=== PATIENT | female | born 1945 | race American Indian/Alaskan Native ===

== ENCOUNTER 2017-03-24 10:46 | Emergency (ER) | payer MEDICARE ==
--- NOTE | 2017-03-24 11:32 | XRay Report ---
AP CHEST : 03/24/17 10:46:00 CLINICAL: Hypertension. COMPARISON:05/19/16 FINDINGS: The left hand overlies the heart. The heart is borderline large. Normal pulmonary vessels. Mild right basal subsegmental atelectasis. The lungs are otherwise clear. A right UNDERWRITING ASSISTANT shunt tube. The bones and soft tissues are unremarkable. IMPRESSION: No acute cardiopulmonary process.
[2017-03-24 11:39] LABS: Basophils % (Auto) 0.3 % (0.0-1.8); Hematocrit 36.3 % (30.3-42.9); Hemoglobin 11.4 gm/dl (10.1-14.3); Mean Corpuscular HGB Conc 32 % (30-34); Mean Corpuscular Hemoglobin 27 pg (28-32); Mean Corpuscular Volume 86 fl (79-97); Platelet Count 272 K/mm3 (140-440); Red Blood Count 4.22 M/mm3 (3.65-5.03); Red Cell Distribution Width 14.8 % (13.2-15.2); White Blood Count 14.7 K/mm3 (4.5-11.0)
[2017-03-24 11:54] LABS: INR 1.04 (0.87-1.13); Partial Thromboplastin Time 28.2 Sec. (24.2-36.6)
[2017-03-24 11:55] LABS: Anion Gap 16 mmol/L; BUN/Creatinine Ratio 31.42; Blood Urea Nitrogen 22 mg/dL (7-17); Calcium 9.3 mg/dL (8.4-10.2); Carbon Dioxide 25 mmol/L (22-30); Chloride 102.5 mmol/L (98-107); Glucose 126 mg/dL (65-100); Potassium 4.2 mmol/L (3.6-5.0); Sodium 139 mmol/L (137-145)
--- NOTE | 2017-03-24 12:01 | Emergency Department Report ---
ED General Adult HPI - General Chief complaint: Medical Clearance Stated complaint: TRACH TUBE REMOVAL Time Seen by Provider: 03/24/17 11:00 Source: EMS Mode of arrival: Stretcher Limitations: Physical Limitation, Other - History of Present Illness Initial comments: The patient was transported to this facility after trach dislodgment. She is a total care patient in a detention. She has a chronic trach. The size was 6 uncuffed. Paramedics tell me that the detention staff attempted to replace a #6 uncuffed and they were unsuccessful. They attempted to replace the trach with a number for uncuffed and that was also unsuccessful. The patient arrived with a washcloth that did have some blood on it. However, the patient's work of breathing is normal and there is no bleeding at the stoma at this time. There is no evidence of stridor. -: Sudden Severity scale (0 -10): 0 Treatments Prior to Arrival: other - Related Data Home Medications Medication Instructions Recorded Confirmed Last Taken Albuterol *Only Ed* [Proventil 2.5 mg IH Q6H PRN 05/15/16 05/15/16 Unknown 0.5% NEBS] Aspirin [Aspirin BABY CHEW TAB] 81 mg FEEDTUBE QDAY 05/15/16 05/15/16 Unknown AtorvaSTATin [Lipitor] 40 mg FEEDTUBE QDAY 05/15/16 05/15/16 Unknown Docusate Sodium [Move It Along] 100 mg FEEDTUBE BID 05/15/16 05/15/16 Unknown Lacosamide [Vimpat] 200 mg FEEDTUBE BID 05/15/16 05/15/16 Unknown Levothyroxine [Synthroid] 150 mcg FEEDTUBE QAM 05/15/16 05/15/16 Unknown Metoprolol [Lopressor TAB] 25 mg FEEDTUBE TID 05/15/16 05/15/16 Unknown Pantoprazole Sodium 40 mg FEEDTUBE QDAY 05/15/16 05/15/16 Unknown Sennosides [Senna] 8.6 mg FEEDTUBE QDAY 05/15/16 05/15/16 Unknown levETIRAcetam [Keppra ORAL LIQ] 20 mg FEEDTUBE BID 05/15/16 05/15/16 Unknown Previous Rx's Medication Instructions Recorded Last Taken Type Lacosamide [Vimpat] 200 mg PO Q12HR tablet 05/24/16 Unknown Rx Lipase/Protease/Amylase [Pancreaze 1 each FEEDTUBE PRN PRN #7 capsule 05/24/16 Unknown Rx 10,500 Unit] Allergies Allergy/AdvReac Type Severity Reaction Status Date / Time No Known Allergies Allergy Unverified 05/14/16 22:40 ED Review of Systems ROS: Stated complaint: TRACH TUBE REMOVAL Other details as noted in HPI Comment: Unobtainable due to pts medical conditions ED Past Medical Hx - Past Medical History Hx CVA: Yes Hx GERD: Yes Hx Seizures: Yes Additional medical history: hypothyroidism - Surgical History Additional Surgical History: Aphasia, persistent vegetative state - Social History Smoking Status: Unknown if ever smoked Substance Use Type: None - Medications Home Medications: Home Medications Medication Instructions Recorded Confirmed Last Taken Type Albuterol *Only Ed* [Proventil 2.5 mg IH Q6H PRN 05/15/16 05/15/16 Unknown History 0.5% NEBS] Aspirin [Aspirin BABY CHEW TAB] 81 mg FEEDTUBE QDAY 05/15/16 05/15/16 Unknown History AtorvaSTATin [Lipitor] 40 mg FEEDTUBE QDAY 05/15/16 05/15/16 Unknown History Docusate Sodium [Move It Along] 100 mg FEEDTUBE BID 05/15/16 05/15/16 Unknown History Lacosamide [Vimpat] 200 mg FEEDTUBE BID 05/15/16 05/15/16 Unknown History Levothyroxine [Synthroid] 150 mcg FEEDTUBE QAM 05/15/16 05/15/16 Unknown History Metoprolol [Lopressor TAB] 25 mg FEEDTUBE TID 05/15/16 05/15/16 Unknown History Pantoprazole Sodium 40 mg FEEDTUBE QDAY 05/15/16 05/15/16 Unknown History Sennosides [Senna] 8.6 mg FEEDTUBE QDAY 05/15/16 05/15/16 Unknown History levETIRAcetam [Keppra ORAL LIQ] 20 mg FEEDTUBE BID 05/15/16 05/15/16 Unknown History Lacosamide [Vimpat] 200 mg PO Q12HR tablet 05/24/16 Unknown Rx Lipase/Protease/Amylase [Pancreaze 1 each FEEDTUBE PRN PRN #7 capsule 05/24/16 Unknown Rx 10,500 Unit] ED Physical Exam - General Limitations: Physical Limitation, Other (no respiratory distress) General appearance: other (nonverbal ) - Head Head exam: Present: atraumatic - Eye Eye exam: Present: normal appearance. Absent: scleral icterus - ENT ENT exam: Present: other (the stoma site was inspected. There appears to be just a few millimeter aperture although it is free from secretions. There is edema at the site but no bleeding.) - Neck Neck exam: Absent: tenderness - Respiratory Respiratory exam: Present: normal lung sounds bilaterally, other (no stridor). Absent: accessory muscle use, decreased breath sounds - Cardiovascular Cardiovascular Exam: Present: regular rate, normal rhythm. Absent: systolic murmur, diastolic murmur, rubs, gallop - GI/Abdominal GI/Abdominal exam: Present: soft, normal bowel sounds. Absent: distended, tenderness, guarding, rebound - Extremities Exam Extremities exam: Present: other (contracted all 4 extremities) - Neurological Exam Neurological exam: Present: alert, other (no acute focal deficit a suspected) ED Course Vital Signs 03/24/17 03/24/17 10:50 11:05 Temperature 99.6 F Pulse Rate 85 Respiratory 14 16 Rate Blood Pressure 151/69 Blood Pressure 151/69 [Right] O2 Sat by Pulse 98 Oximetry - Reevaluation(s) Reevaluation #1: Patient is observed. She has developed no desaturation. She is not having trouble with her secretions. There is no signs of stridor. Her work of breathing remains normal. In my estimation further instrumentation of her trachea may be high risk particularly without ENT backup. We do not have ENT coverage at this facility. If it was an emergency situation I believe that we could attempt bougie placement of a trach. However, this procedure may cause additional trauma and there is risk that it would be unsuccessful. In my opinion the patient is stable for transfer at this time. I observed the patient now for almost an hour and a half and there have been no signs of any airway emergency. I spoke to , ENT specialist who is covering [place]. She informed me that I should try to do something about the "systems failure"and not having ENT coverage at this facility. She also was dismayed that we don't have the history of the patient's tracheostomy. I tried to explain to her this is a chronic trach and a total care patient with trach not recently placed coming from a detention. I will send available records which do not comment on the trach placement at all. I don't think any additional information is available from the detention on that either. was kind enough to accept this patient in transfer to [facility]. Again, in my opinion she is stable for transfer. The risks of blind placement here after 2 unsuccessful attempts are outweighed by transfer to a facility with ENT availability. In any case the patient is stable at this time. 03/24/17 12:04 ED Medical Decision Making - Lab Data Result diagrams: 03/24/17 11:15 Laboratory Results - last 24 hr 03/24/17 03/24/17 03/24/17 11:15 11:15 11:15 WBC 14.7 H RBC 4.22 Hgb 11.4 Hct 36.3 MCV 86 MCH 27 L MCHC 32 RDW 14.8 Plt Count 272 Lymph % (Auto) 20.9 [place] % (Auto) 7.2 Eos % (Auto) 4.0 Baso % (Auto) 0.3 Lymph # 3.1 [place] # 1.1 H Eos # 0.6 H Baso # 0.0 Seg Neutrophils % 67.6 Seg Neutrophils # 10.0 H PT 13.5 INR 1.04 APTT 28.2 Sodium 139 Potassium 4.2 Chloride 102.5 Carbon Dioxide 25 Anion Gap 16 BUN 22 H Creatinine 0.7 Estimated GFR > 60 BUN/Creatinine Ratio 31.42 Glucose 126 H Calcium 9.3 - Radiology Data Radiology results: report reviewed interpreted by me: No acute cardiopulmonary process. There is a BP shunt. There may be some slight atelectasis in the right mid field. Critical care attestation.: If time is entered above; I have spent that time in minutes in the direct care of this critically ill patient, excluding procedure time. ED Disposition Clinical Impression: Tracheostomy complication Qualifiers: Tracheostomy complication: unspecified Qualified Code(s): J95.00 - Unspecified tracheostomy complication Disposition: DC/TX-70 ANOTHER TYPE HLTHCARE Is pt being admited?: No Does the pt Need Aspirin: No Condition: Stable Referrals: PRIMARY CARE, [Primary Care Provider] - 3-5 Days Time of Disposition: 12:12
[2017-03-24 12:33] VITALS: BP 139/77
== END 2017-03-24 13:10 | disposition other institution (70) ==
LOC: ED 10:46
DX: J95.03 Malfunction of tracheostomy stoma (principal); K21.9 Gastro-esophageal reflux disease without esophagitis; E03.9 Hypothyroidism, unspecified; R56.9 Unspecified convulsions; Z79.82 Long term (current) use of aspirin; Z86.73 Personal history of transient ischemic attack (TIA), and cerebral infarction without residual deficits
CPT/HCPCS: 36415; 71010; 80048; 85025; 85610; 85730; 99285